=== PATIENT | male | born 1975 | race American Indian/Alaskan Native ===

== ENCOUNTER 2019-04-24 22:05 | Emergency (ER) | payer SELFPAY ==
[2019-04-24 22:29] VITALS: BP 179/115
[2019-04-25] MEDS ORDERED: AZITHROMYCIN 250 MG TAB PO ONE (00:04)
[2019-04-25] MEDS ORDERED: LIDOCAINE-MPF (1%) 10 MG/1 ML VIAL 5 ML INFILTRATI ONE (00:04)
[2019-04-25 00:05] LABS: Bilirubin,Urine NEG (Negative); Blood,Urine NEG (Negative); Color,Urine Yellow (Yellow); Protein,Urine <15 mg/dL mg/dL (Negative); RBC,Urine < 1.0 /HPF (0.0-6.0); Urobilinogen,Urine < 2.0 mg/dL (<2.0); WBC,Urine < 1.0 /HPF (0.0-6.0)
--- NOTE | 2019-04-25 01:10 | Emergency Department Report ---
ED Male HPI - General Chief complaint: Urogenital-Male Stated complaint: DISCHARGE FROM PENIS Source: patient Mode of arrival: Ambulatory Limitations: No Limitations - History of Present Illness Initial comments: Patient is a 44-year-old male who presented to the ED with acute onset persistent dysuria, urinary frequency and urgency, penile discharge and penile irritation for the last 2 days after having an unprotected sexual intercourse 5 days ago with a new sexual partner. Patient states that the pain is worse with urination and that the penile discharge has been persistent with a bad smell. Patient denies testicular pain, fever, chills, nausea, vomiting, abdominal pain, scrotal swelling, hematuria or back pain. MD Complaint: penile discharge, dysuria, other (urinary urgency and frequency) -: Sudden, days(s) (2) Location: penis Radiation: none Severity: severe Severity scale (0 -10): 7 Quality: burning, sharp Consistency: constant Improves with: none Worsens with: urination new sexual partner denies other symptoms, discharge, dysuria. denies: swelling, mass, rash, urinary retention, blood in urine, fever, nausea/vomiting, incontinence, other - Related Data Sexually active: Yes (unprotected with new partner) Allergies Allergy/AdvReac Type Severity Reaction Status Date / Time No Known Allergies Allergy Unverified 04/24/19 22:29 ED Review of Systems ROS: Stated complaint: DISCHARGE FROM PENIS Other details as noted in HPI Constitutional: denies: chills, fever Eyes: denies: eye pain, eye discharge, vision change ENT: denies: ear pain, throat pain Respiratory: denies: cough, shortness of breath, wheezing Cardiovascular: denies: chest pain, palpitations Endocrine: no symptoms reported Gastrointestinal: denies: abdominal pain, nausea, diarrhea Genitourinary: urgency, dysuria, frequency, discharge. denies: testicular pain, testicular mass Musculoskeletal: denies: back pain, joint swelling, arthralgia Skin: denies: rash, lesions Neurological: denies: headache, weakness, paresthesias Psychiatric: denies: anxiety, depression Hematological/Lymphatic: denies: easy bleeding, easy bruising ED Past Medical Hx - Past Medical History Previous Medical History?: Yes Hx Hypertension: Yes - Surgical History Past Surgical History?: No - Social History Smoking Status: Never Smoker Substance Use Type: None ED Physical Exam - General Limitations: No Limitations General appearance: alert, in no apparent distress - Head Head exam: Present: atraumatic, normocephalic, normal inspection - Eye Eye exam: Present: normal appearance, PERRL, EOMI Pupils: Present: normal accommodation - ENT ENT exam: Present: normal exam, normal orophraynx, mucous membranes moist, TM's normal bilaterally, normal external ear exam - Neck Neck exam: Present: normal inspection, full ROM - Respiratory Respiratory exam: Present: normal lung sounds bilaterally. Absent: respiratory distress, wheezes, rales, rhonchi, chest wall tenderness, accessory muscle use, prolonged expiratory - Cardiovascular Cardiovascular Exam: Present: regular rate, normal rhythm, normal heart sounds. Absent: systolic murmur, diastolic murmur, rubs, gallop - GI/Abdominal GI/Abdominal exam: Present: soft, normal bowel sounds. Absent: distended, tenderness, guarding, hyperactive bowel sounds, hypoactive bowel sounds - External exam: Present: other (Genital exam deferred patient declined) - Extremities Exam Extremities exam: Present: normal inspection, full ROM, normal capillary refill - Back Exam Back exam: Present: normal inspection, full ROM. Absent: tenderness, CVA tenderness (L), muscle spasm, paraspinal tenderness - Neurological Exam Neurological exam: Present: alert, oriented X3, CN II-XII intact, normal gait - Psychiatric Psychiatric exam: Present: normal affect, normal mood - Skin Skin exam: Present: warm, dry, intact, normal color. Absent: rash ED Course Vital Signs 04/24/19 04/24/19 22:22 22:49 Temperature 97.7 F 98 F Pulse Rate 79 Respiratory 18 Rate Blood Pressure 179/115 O2 Sat by Pulse 95 Oximetry ED Medical Decision Making - Medical Decision Making This is a 44-year-old male who presented to the ED with acute onset persistent dysuria, urinary frequency and urgency, penile discharge and penile irritation for the last 2 days after having an unprotected sexual intercourse 5 days ago with a new sexual partner. In the ED, patient is alert and oriented x3 and is not in distress. Patient was treated empirically for chlamydia and gonorrhea and was discharged home and advised to follow-up at the [facility] department for further STD testing including HIV. Patient was advised to ensure that sexual partner gets treated for the same. Patient was advised to return to the ED immediately if symptoms get worse. - Differential Diagnosis Gonorrhea/Chlamydia; UTI; Dipika; Trichomonas Critical care attestation.: If time is entered above; I have spent that time in minutes in the direct care of this critically ill patient, excluding procedure time. ED Disposition Clinical Impression: Urethritis, nonspecific, STD (sexually transmitted disease) Disposition: TO HOME OR SELFCARE Is pt being admited?: No Does the pt Need Aspirin: No Condition: Stable Instructions: Nonspecific Urethritis in Men (ED), Sexually Transmitted Diseases (ED) Additional Instructions: Follow-up at the [facility] for further evaluation of other STDs such as HIV and syphilis. Ensure that your sexual partner also gets evaluated and treated at [facility]. Return to the ED immediately if symptoms get worse. Referrals: [facility] Depart [Outside] - 3-5 Days Forms: STI Treatment and Prevention Time of Disposition: 01:11 Print Language: YEMENI
== END 2019-04-25 01:15 | disposition home or self-care (01) ==
LOC: ED 22:05
DX: N34.2 Other urethritis (principal); A64 Unspecified sexually transmitted disease; I10 Essential (primary) hypertension
CPT/HCPCS: 81001; 96372; 99283; J0696